=== PATIENT | male | born 1960 | race Two or more races ===

== ENCOUNTER 2016-10-14 20:25 | Emergency (ER) | payer OTHER ==
[~2016-10-14] VITALS: Ht 170.2 cm; Wt 74.8 kg
[~2016-10-14 20:25] MED LIST: CARVEDILOL3.125 MG ORAL; GABAPENTIN100 MG ORAL
[2016-10-14 20:38] VITALS: BP 169/89
[2016-10-14 21:17] LABS: BASOPHILS % (AUTO) 1.5 % (0.0-2.0); LYMPHOCYTES % (AUTO) 33.6 % (20.0-45.0); MEAN CORPUSCULAR HEMOGLOBIN 29.2 PG (27.0-31.0); MEAN CORPUSCULAR HGB CONC 33.4 G/DL (32.0-36.0); MEAN CORPUSCULAR VOLUME 87 FL (80-99); MEAN PLATELET VOLUME 6.1 FL (6.5-10.1); MONOCYTES % (AUTO) 11.7 % (1.0-10.0); NEUTROPHILS % (AUTO) 52.3 % (45.0-75.0); PLATELET COUNT 196 K/UL (150-450); RED BLOOD COUNT 3.59 M/UL (4.70-6.10); RED CELL DISTRIBUTION WIDTH 11.7 % (11.6-14.8); WHITE BLOOD COUNT 5.7 K/UL (4.8-10.8)
[2016-10-14 21:33] LABS: TROPONIN I < 0.30 ng/mL (<=0.30)
[2016-10-14 21:34] LABS: ALBUMIN/GLOBULIN RATIO 1.4 (1.0-2.7); CALCIUM 8.6 mg/dL (8.6-10.2); CREATININE 1.5 mg/dL (0.7-1.2); GLOMERULAR FILTRATION RATE 48.8 mL/min (>60); POTASSIUM 3.8 mEQ/L (3.4-4.9); TOTAL PROTEIN 6.4 g/dL (6.6-8.7)
[2016-10-14 22:10] VITALS: BP 163/49
[2016-10-14] MEDS ORDERED: Dextrose 10% 1,000 ML IV SCH (23:00)
[2016-10-14] MEDS ORDERED: LORazepam Inj 2mg/ml 1ml IV PRN (23:15)
[2016-10-14] MEDS ORDERED: Mylanta II UD 30ml ORAL PRN (23:15)
[2016-10-14] MEDS ORDERED: Zolpidem 5mg tab ORAL PRN (23:15)
[2016-10-14] MEDS ORDERED: Morphine Sulfate 2mg/ml Inj IVP PRN (23:15)
[2016-10-14] MEDS ORDERED: Miralax 17gm pkt ORAL PRN (23:15)
[2016-10-14] MEDS ORDERED: D5 1/2NS 1,000 ML IV SCH (23:15)
--- NOTE | 2016-10-14 23:42 | Emergency Room Report ---
History of Present Illness General Chief Complaint: Abnormal Labs Source: Patient Present Illness HPI Patient's 56-year-old male who presented after having a decreased blood sugar after using excessive amounts of Lantus insulin. Patient prior history of diabetes. He was noted to be hypoglycemic by EMS for sugar in the 40s. Patient had the reportedly had a sugar 120 home and took 20 units of Lantus insulin. He says he was noted to have sweatiness and low blood sugar. Patient had not eaten after taking the Lantus.He had been given D50 prior by paramedics Allergies: Coded Allergies: No Known Allergies (Unverified , 10/14/16) Patient History Past Medical History: see triage record Reviewed Nursing Documentation: PMH: Agreed, PSxH: Agreed Nursing Documentation-PMH Hx Hypertension: Yes Hx Diabetes: Yes Review of Systems All Other Systems: negative except mentioned in HPI Physical Exam Vital Signs Date Time Temp Pulse Resp B/P Pulse Ox O2 Delivery O2 Flow Rate FiO2 10/14/16 20:13 97.5 69 18 169/89 100 Room Air Sp02 EP Interpretation: reviewed, normal General Appearance: normal inspection, well appearing, no apparent distress, alert, GCS 15 Head: atraumatic ENT: normal ENT inspection, hearing grossly normal, normal voice Neck: normal inspection, full range of motion, supple, no bony tend Respiratory: normal inspection, lungs clear, normal breath sounds, no respiratory distress, no retraction, no wheezing Cardiovascular #1: regular rate, rhythm, no edema Gastrointestinal: normal inspection, normal bowel sounds, non tender, soft, no guarding, no hernia Genitourinary: no CVA tenderness Musculoskeletal: normal inspection, back normal, normal range of motion Neurologic: normal inspection, alert, responsive, speech normal Psychiatric: normal inspection, judgement/insight normal, mood/affect normal Skin: normal inspection, normal color, no rash Medical Decision Making Diagnostic Impression: Primary Impression: Hypoglycemia ER Course Patient presented for hypoglycemia. Differential diagnoses included was not limited to insulin overdose, medication noncompliance, sepsis, renal failure, among others.Because of complexity of patient's case laboratory testing and imaging studies were ordered. The patient noted to have history consistent with accidental medication overdose. The patient was given D50 in emergency department he was fed he had recurrent hypoglycemic episodes. Patient subsequently started on IV D10 drip. The patient was discussed with Dr. Turk who agreed to accept the patient in transfer. Labs Test 7/17/17 20:53 White Blood Count 5.7 K/UL (4.8-10.8) Red Blood Count 3.59 M/UL (4.70-6.10) Hemoglobin 10.5 G/DL (14.2-18.0) Hematocrit 31.3 % (42.0-52.0) Mean Corpuscular Volume 87 FL (80-99) Mean Corpuscular Hemoglobin 29.2 PG (27.0-31.0) Mean Corpuscular Hemoglobin Concent 33.4 G/DL (32.0-36.0) Red Cell Distribution Width 11.7 % (11.6-14.8) Platelet Count 196 K/UL (150-450) Mean Platelet Volume 6.1 FL (6.5-10.1) Neutrophils (%) (Auto) 52.3 % (45.0-75.0) Lymphocytes (%) (Auto) 33.6 % (20.0-45.0) Monocytes (%) (Auto) 11.7 % (1.0-10.0) Eosinophils (%) (Auto) 1.0 % (0.0-3.0) Basophils (%) (Auto) 1.5 % (0.0-2.0) Sodium Level 135 mEQ/L (135-145) Potassium Level 3.8 mEQ/L (3.4-4.9) Chloride Level 98 mEQ/L (98-107) Carbon Dioxide Level 26 mEQ/L (20-30) Anion Gap 11 (5-15) Blood Urea Nitrogen 25 mg/dL (7-23) Creatinine 1.5 mg/dL (0.7-1.2) Estimat Glomerular Filtration Rate 48.8 mL/min (>60) Glucose Level 73 mg/dL (74-106) Calcium Level 8.6 mg/dL (8.6-10.2) Total Bilirubin 0.2 mg/dL (0.0-1.2) Aspartate Amino Transf (AST/SGOT) 23 U/L (5-40) Alanine Aminotransferase (ALT/SGPT) 13 U/L (3-41) Alkaline Phosphatase 82 U/L (40-129) Troponin I < 0.30 ng/mL (<=0.30) Total Protein 6.4 g/dL (6.6-8.7) Albumin 3.8 g/dL (3.5-5.2) Globulin 2.6 g/dL Albumin/Globulin Ratio 1.4 (1.0-2.7) Last Vital Signs Date Time Temp Pulse Resp B/P Pulse Ox O2 Delivery O2 Flow Rate FiO2 10/14/16 22:10 97.5 66 10 163/49 98 Room Air Status: improved Disposition: XFER SHT-TRM HOSP Condition: Serious Referrals: [facility],REFERRING (PCP) Abhinav Bacon Oct 14, 2016 23:42
[2016-10-14 23:52] VITALS: BP 171/81
[2016-10-15 01:05] VITALS: BP 201/89
[2016-10-15 01:17] VITALS: BP 170/85
[2016-10-15 01:21] VITALS: BP 166/77
[2016-10-15 01:25] VITALS: BP 166/77
[2016-10-15] MEDS ORDERED: NovoLOG Insulin Flexpen SUBQ SCH (06:30)
[2016-10-15] MEDS ORDERED: Heparin 5000 units/ml inj SUBQ SCH (09:00)
[2016-10-15] MEDS ORDERED: Carvedilol 6.25mg Tab ORAL SCH (09:00)
== END 2016-10-15 01:37 | disposition short-term general hospital (02) ==
LOC: EDBD 20:25 → EMR 20:43
DX: E11.649 Type 2 diabetes mellitus with hypoglycemia without coma (principal); I10 Essential (primary) hypertension; Z79.4 Long term (current) use of insulin
CPT/HCPCS: 36415; 80053; 82962; 84484; 85025; 96360; 96374; 96375; 99285; J0360